=== PATIENT | female | born 1985 | race Caucasian/White ===

== ENCOUNTER 2018-07-14 09:32 | Emergency (ER) | payer OTHER ==
[~2018-07-14] VITALS: Ht 160 cm; Wt 113.4 kg
[2018-07-14] MEDS ORDERED: WELLBUTRIN XL300 MG (09:59)
[2018-07-14] MEDS ORDERED: EFFEXOR XR150 MG (10:00)
[2018-07-14] MEDS ORDERED: ENBREL25 MG (10:00)
[2018-07-14] MEDS ORDERED: SULFASALAZINE500 MG (10:00)
[2018-07-14] MEDS ORDERED: RASUVO 2525 MG/0.5 (10:01)
[2018-07-14] MEDS ORDERED: FOLIC ACID1 MG (10:01)
[2018-07-14] MEDS ORDERED: IRON18 MG (10:01)
== END 2018-07-14 12:12 | disposition home or self-care (01) ==
LOC: ER 09:32
DX: J35.01 Chronic tonsillitis (principal)